=== PATIENT | male | born 1980 | race African-American/Black ===

== ENCOUNTER 2019-01-18 05:02 | Emergency (ER) | payer SELFPAY ==
[~2019-01-18] VITALS: Ht 190.5 cm; Wt 122.5 kg
[2019-01-18 05:05] VITALS: BP 192/126
[2019-01-18] MEDS ORDERED: TRIA10.8 NS (05:25)
[2019-01-18] MEDS ORDERED: AMOX1TAB61 PO (05:25)
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
[2019-01-18] MEDS ORDERED: AMOXICILLIN/K CLAV 875/125MG TABLET. ONE (05:34)
[2019-01-18] MEDS ORDERED: AMOXICILLIN/K CLAV 875/125MG TABLET. PO ONE (06:00)
== END 2019-01-18 05:42 | disposition home or self-care (01) ==
LOC: ER 05:02
DX: J01.00 Acute maxillary sinusitis, unspecified (principal); I10 Essential (primary) hypertension
CPT/HCPCS: 99283